=== PATIENT | female | born 1940 | race Caucasian/White ===

== ENCOUNTER → 2018-06-03 | Outpatient (CLI) | payer MEDICARE, OTHER | LOC: CARD 10:41 | PROVIDERS: ATTEND Internal Medicine Cardiovascular Disease | DX: E78.2 Mixed hyperlipidemia (principal); I10 Essential (primary) hypertension; R00.1 Bradycardia, unspecified; E66.9 Obesity, unspecified; I08.1 Rheumatic disorders of both mitral and tricuspid valves | CPT/HCPCS: 93306 ==

== ENCOUNTER → 2018-06-14 | Outpatient (CLI) | payer MEDICARE, OTHER ==
[~2018-06-14] VITALS: Ht 160 cm; Wt 94.8 kg
[~2018-06-14] MED LIST: CATHETER FLUSH 10 ML SYR IV PRN; REGADENOSON 0.4 MG/5 ML SYR (LEXISCAN) IV ONE
[2018-06-14 09:25] VITALS: BP 150/71
--- NOTE | 2018-06-15 09:01 | STRESS TEST ---
DATE OF SERVICE: 06/14/2018 LEXISCAN MYOVIEW STRESS TEST REFERRING PHYSICIAN: Dr. Britney Will. Baseline heart rate is 48, baseline blood pressure 155/72. Baseline EKG is sinus rhythm with no ischemic changes. SUMMARY: The patient was injected with 10.73 mCi of technetium-99 Myoview and the resting images were obtained. Then, the patient received 0.4 mg of Lexiscan followed by 28.3 mCi of technetium-99 Myoview. Throughout the test, there were no EKG changes. The resting and stress images were reviewed and compared in the short axis, horizontal long axis, and vertical long axis views. Review of the images showed good radiotracer uptake with breast attenuation, typical female pattern with no significant ischemia or infarction. SSS is 4, SDS 2, TID value 1.07. On the gated images, the left ventricle appeared to be in normal size with normal contractility. Calculated ejection fraction 55%. CONCLUSION: 1. The patient tolerated Lexiscan well. 2. Breast attenuation with typical female pattern with no significant ischemia or infarction on SPECT images. 3. Normal left ventricular size with normal contractility. Calculated ejection fraction 55%. Job ID: [id number] DocumentID: [id number] Dictated Date: 06/15/2018 08:06:11 Mattress Packer Date: 06/15/2018 09:01:14 Dictated By: SHERLYN AYALA MD
== END ==
LOC: CARD 07:28
PROVIDERS: ATTEND Internal Medicine Cardiovascular Disease
DX: E78.2 Mixed hyperlipidemia (principal); I10 Essential (primary) hypertension; R00.1 Bradycardia, unspecified; E66.9 Obesity, unspecified; Z68.37 Body mass index [BMI] 37.0-37.9, adult
CPT/HCPCS: 78452; 93017

== ENCOUNTER 2018-07-16 13:45 | Inpatient (IN) | payer MEDICARE, OTHER | END 2018-07-22 13:16 | disposition home or self-care (01) | LOC: ICU 07-18 07:18 → 4TH 07-20 11:29 | DX: I30.9 Acute pericarditis, unspecified (principal); R74.8 Abnormal levels of other serum enzymes; I12.0 Hypertensive chronic kidney disease with stage 5 chronic kidney disease or end stage renal disease; N18.3 Chronic kidney disease, stage 3 (moderate); I48.0 Paroxysmal atrial fibrillation; I27.20 Pulmonary hypertension, unspecified; G47.30 Sleep apnea, unspecified; R00.1 Bradycardia, unspecified; T44.7X5A Adverse effect of beta-adrenoreceptor antagonists, initial encounter; K21.9 Gastro-esophageal reflux disease without esophagitis; J30.2 Other seasonal allergic rhinitis; K58.1 Irritable bowel syndrome with constipation; M19.91 Primary osteoarthritis, unspecified site; M54.9 Dorsalgia, unspecified; M10.9 Gout, unspecified; H40.9 Unspecified glaucoma; E66.9 Obesity, unspecified; Z91.19 Patient's noncompliance with other medical treatment and regimen; Z68.36 Body mass index [BMI] 36.0-36.9, adult ==

== ENCOUNTER 2018-07-30 17:20 | Emergency (ER) | payer MEDICARE, OTHER ==
[~2018-07-30] VITALS: Ht 162.6 cm; Wt 93.4 kg
[~2018-07-30 17:20] MED LIST changes: +ACET-2267 PO; +AMIO200T4 PO; +AMLO5TAB9 PO; +APIX5TAB PO; +BIOT50002 SL; +BISO1TAB6 PO; -CATHETER FLUSH 10 ML SYR IV PRN; +DILT30TA PO; +ERGO50006 PO; +GABA-488 PO; +LACT1CAP74 PO; +LEVO50TA6 PO; +LOSA100T57 PO; +OMEP20TA33 PO; +POLY1DRO OU; -REGADENOSON 0.4 MG/5 ML SYR (LEXISCAN) IV ONE; +SIMV20TA3 PO; +TRAV5DRO OU
[2018-07-30 17:42] LABS: BASOPHILS % (AUTO) 0 % (0-10); EOSINOPHILS % (AUTO) 0 % (0-10); HEMATOCRIT 28 % (35-52); HEMOGLOBIN 8.9 G/DL (11.5-16.0); LYMPHOCYTES # (AUTO) 1.3 X 10^3 (1.0-4.0); LYMPHOCYTES % (AUTO) 15 % (12-44); MEAN CORPUSCULAR HEMOGLOBIN 30 PG (25-34); MEAN CORPUSCULAR HGB CONC 32 G/DL (32-36); MEAN CORPUSCULAR VOLUME 94 FL (80-99); MONOCYTES % (AUTO) 12 % (0-12); NEUTROPHILS # (AUTO) 6.1 X 10^3 (1.8-7.8); NEUTROPHILS % (AUTO) 72 % (42-75); PLATELET COUNT 302 10^3/uL (130-400); WHITE BLOOD COUNT 8.4 10^3/uL (4.3-11.0)
[2018-07-30] MEDS ORDERED: ASPIRIN 81 MG CHEW (CHILDREN'S ASA) PO ONE (17:45)
--- NOTE | 2018-07-30 18:06 | Diagnostic Imaging Report ---
INDICATION: Shortness of breath. COMPARISON: Prior examination from 07/20/2018. EXAMINATION: Two views of the chest were obtained. FINDINGS: There is some left basilar atelectasis and/or pneumonitis and a small left pleural effusion. There is cardiomegaly. Mediastinum is unremarkable. There is no pneumothorax. Spinal stimulator overlies the midthoracic spine. IMPRESSION: 1. Left basilar atelectasis and/or pneumonitis and a tiny left pleural effusion. 2. Cardiomegaly. Dictated by: Dictated on workstation # [id number]
[2018-07-30 18:08] LABS: ALANINE AMINOTRANSFERASE 28 U/L (0-55); ALKALINE PHOSPHATASE 87 U/L (40-136); BILIRUBIN,TOTAL 0.5 MG/DL (0.1-1.0); BUN/CREATININE RATIO 18; CALCIUM 8.9 MG/DL (8.5-10.1); CARBON DIOXIDE 23 MMOL/L (21-32); CHLORIDE 104 MMOL/L (98-107); CREATININE SERUM 1.73 MG/DL (0.60-1.30); GFR ESTIMATED 28; GLUCOSE 135 MG/DL (70-105); POTASSIUM 4.4 MMOL/L (3.6-5.0); SODIUM 135 MMOL/L (135-145); TOTAL PROTEIN 6.9 GM/DL (6.4-8.2)
[2018-07-30 18:13] LABS: INR 1.9 (0.8-1.4); PROTHROMBIN TIME PATIENT 22.6 SEC (12.2-14.7)
[2018-07-30 18:29] LABS: FREE T4 (FREE THYROXINE) 1.32 NG/DL (0.70-1.48)
--- NOTE | 2018-07-30 18:42 | ED Chest Pain ---
General Chief Complaint: Respiratory Problems Stated Complaint: SOB/O2 READING LOW 80'S Nursing Triage Note: Pt to ED with c/o sob, and pain under L breast. Pt reports O2 sats at home were in the low 80's. Pt also reports chest pain that has persisted since being discharged from the hospital one week ago. Nursing Sepsis Screen: No Definite Risk Source: patient, old records Exam Limitations: no limitations History of Present Illness Date Seen by Provider: July 30, 2018 Time Seen by Provider: 17:24 Initial Comments This 77-year-old woman presents to the emergency room with complaints of persistent chest discomfort and increased shortness of breath since being discha rged from the hospital earlier this month. She was admitted on July 16 for chest discomfort and possible pericarditis. She had elevated inflammatory markers and a positive AGUSTÍN test. She had suspected pericardial effusion as well. Today she reported having an oxygen saturation of 82 to 96 percent at home. However, she is satting in the mid 90s in the ER. Her low readings at home may be because of thick nail coverings and nail turkmen. Symptoms of chest discomfort and shortness of breath never really ceased after her admission but today they are a little worse. A little worse with inspiration. Dyspnea is worse with exertion. She was on colchicine and prednisone while in the hospital but did not continue these at home. Patient also had atrial fibrillation during her admission. She is anticoagulated. She believes she may have had some tachycardia this morning that has since resolved. Allergies and Home Medications Allergies Coded Allergies: levofloxacin (Unverified Allergy, Unknown, 06/14/18) propoxyphene (Unverified Allergy, Unknown, 06/14/18) Home Medications Acetaminophen 500 Mg Tablet, 500-1,000 MG PO Q4H PRN for PAIN-MILD, (Reported) Amiodarone HCl 200 Mg Tablet, 200 MG PO BID Prescribed by: KEIKO REYES on 07/22/18945 Apixaban 5 Mg Tablet, 5 MG PO BID Prescribed by: KEIKO REYES on 07/22/18945 Azithromycin 250 Mg Tablet, 250 MG PO DAILY Prescribed by: JAYRO RAMIREZ on 07/30/181915 Biotin 5,000 Mcg Tab.subl, 5,000 MCG SL DAILY, (Reported) Diltiazem HCl 30 Mg Tablet, 30 MG PO BID Prescribed by: KEIKO REYES on 07/22/18 0946 Ergocalciferol (Vitamin D2) 50,000 Unit Capsule, 50,000 UNITS PO We, (Reported) Gabapentin 300 Mg Capsule, 300 MG PO BID, (Reported) Gabapentin 300 Mg Capsule, 300 MG PO 1200 PRN for NEUROPATHY PAIN, (Reported) Lactobacillus Combination No.4 1 Each Capsule, 1 CAP PO DAILY, (Reported) Levothyroxine Sodium 50 Mcg Tablet, 50 MCG PO DAILY, (Reported) Losartan Potassium 100 Mg Tablet, 100 MG PO DAILY, (Reported) Omeprazole Magnesium 20 Mg Tablet.dr, 20 MG PO 1000, (Reported) Polyvinyl Alcohol/Povidone/Pf 1 Each Droperette, 1 DROP OU QID PRN for DRY EYES, (Reported) Simvastatin 20 Mg Tablet, 20 MG PO HS, (Reported) Travoprost 5 Ml Drops, 1 DROP OU HS, (Reported) Patient Home Medication List Home Medication List Reviewed: Yes Review of Systems Review of Systems Constitutional: no symptoms reported EENTM: No Symptoms Reported Respiratory: See HPI Cardiovascular: See HPI Gastrointestinal: No Symptoms Reported Genitourinary: No Symptoms Reported Musculoskeletal: no symptoms reported Skin: no symptoms reported Psychiatric/Neurological: No Symptoms Reported Endocrine: No Symptoms Reported Hematologic/Lymphatic: See HPI Past Iccfoil-Ckqdoy-Wqchup Hx Past Med/Social Hx: Reviewed and Corrections made Patient Social History Alcohol Use: Denies Use Recreational Drug Use: No Smoking Status: Former Smoker Type Used: Cigarettes 2nd Hand Smoke Exposure: No Recent Foreign Travel: No Contact w/Someone Who Travel: No Recent Infectious Disease Expo: No Recent Hopitalizations: No Seasonal Allergies Seasonal Allergies: Yes Past Medical History Surgeries: Yes (NECK SX, HEART CATH) Respiratory: No Sleep Apnea Currently Using CPAP: Yes (NONCOMPLIANT) Currently Using BIPAP: No Cardiac: Yes Atrial Fibrillation, Pericarditis Neurological: No : No Genitourinary: Yes Bladder Infection Gastrointestinal: Yes Gastroesophageal Reflux, Chronic Constipation, Irritable Bowel Musculoskeletal: Yes Arthritis, Chronic Back Pain, Fractures, Gout Endocrine: Yes (positive ANAs screen) HEENT: Yes Cataract, Glaucoma Cancer: No Psychosocial: No Integumentary: No Blood Disorders: Yes (positive AGUSTÍN screen) Physical Exam Vital Signs Vital Signs - First Documented 07/30/18 17:30 Temp 98.2 Pulse 86 Resp 20 B/P (MAP) 122/62 (82) Pulse Ox 94 O2 Delivery Room Air Capillary Refill : Less Than 3 Seconds Height, Weight, BMI Height: 5'4.00" Weight: 206lbs. 0.0oz. 93.943746uy; 37.0 BMI Method:Stated General Appearance: No Apparent Distress, WD/WN HEENT: PERRL/EOMI, Normal ENT Inspection Neck: Normal Inspection Respiratory: Lungs Clear, Normal Breath Sounds, No Accessory Muscle Use, No Respiratory Distress Cardiovascular: Regular Rate, Rhythm, No Edema, No Murmur Gastrointestinal: Normal Bowel Sounds, Non Tender, Soft Extremity: Normal Capillary Refill, Normal Inspection, Non Tender, No Calf Tenderness, No Pedal Edema Neurologic/Psychiatric: Alert, Oriented x3, No Motor/Sensory Deficits, bench manager II- XII Norm as Tested, Other (mildly anxious) Progress/Results/Core Measures Results/Orders Lab Results Laboratory Tests Test 07/30/18 17:30 Range/Units White Blood Count 8.4 4.3-11.0 10^3/uL Red Blood Count 2.93 L 4.35-5.85 10^6/uL Hemoglobin 8.9 L 11.5-16.0 G/DL Hematocrit 28 L 35-52 % Mean Corpuscular Volume 94 80-99 FL Mean Corpuscular Hemoglobin 30 25-34 PG Mean Corpuscular Hemoglobin Concent 32 32-36 G/DL Red Cell Distribution Width 14.0 10.0-14.5 % Platelet Count 302 130-400 10^3/uL Mean Platelet Volume 11.0 H 7.4-10.4 FL Neutrophils (%) (Auto) 72 42-75 % Lymphocytes (%) (Auto) 15 12-44 % Monocytes (%) (Auto) 12 0-12 % Eosinophils (%) (Auto) 0 0-10 % Basophils (%) (Auto) 0 0-10 % Neutrophils # (Auto) 6.1 1.8-7.8 X 10^3 Lymphocytes # (Auto) 1.3 1.0-4.0 X 10^3 Monocytes # (Auto) 1.0 0.0-1.0 X 10^3 Eosinophils # (Auto) 0.0 0.0-0.3 10^3/uL Basophils # (Auto) 0.0 0.0-0.1 10^3/uL Erythrocyte Sedimentation Rate 61 H 0-30 MM/HR Prothrombin Time 22.6 H 12.2-14.7 SEC INR Comment 1.9 H 0.8-1.4 Activated Partial Thromboplast Time 52 H 24-35 SEC Sodium Level 135 135-145 MMOL/L Potassium Level 4.4 3.6-5.0 MMOL/L Chloride Level 104 98-107 MMOL/L Carbon Dioxide Level 23 21-32 MMOL/L Anion Gap 8 5-14 MMOL/L Blood Urea Nitrogen 32 H 7-18 MG/DL Creatinine 1.73 H 0.60-1.30 MG/DL Estimat Glomerular Filtration Rate 28 BUN/Creatinine Ratio 18 Glucose Level 135 H 70-105 MG/DL Calcium Level 8.9 8.5-10.1 MG/DL Corrected Calcium 8.9 8.5-10.1 MG/DL Magnesium Level 2.0 1.8-2.4 MG/DL Total Bilirubin 0.5 0.1-1.0 MG/DL Aspartate Amino Transf (AST/SGOT) 39 H 5-34 U/L Alanine Aminotransferase (ALT/SGPT) 28 0-55 U/L Alkaline Phosphatase 87 40-136 U/L Myoglobin 75.9 10.0-92.0 NG/ML Troponin I < 0.028 <0.028 NG/ML C-Reactive Protein High Sensitivity 5.25 H 0.00-0.50 MG/DL B-Type Natriuretic Peptide 85.5 <100.0 PG/ML Total Protein 6.9 6.4-8.2 GM/DL Albumin 4.0 3.2-4.5 GM/DL Thyroid Stimulating Hormone (TSH) 1.58 0.35-4.94 UIU/ML Free Thyroxine 1.32 0.70-1.48 NG/DL My Orders Orders - JAYRO ANGEL MD Chest Pa/Lat (2 View) (07/30/18 17:31) Cbc With Automated Diff (07/30/18 17:31) Magnesium (07/30/18 17:31) Ekg Tracing (07/30/18 17:31) Cardiac Profile 1 (07/30/18 17:31) Comprehensive Metabolic Panel (07/30/18 17:31) Myoglobin Serum (07/30/18 17:31) Protime With Inr (07/30/18 17:31) Partial Thromboplastin Time (07/30/18 17:31) O2 (07/30/18 17:31) Monitor-Rhythm Ecg Trace Only (07/30/18 17:31) Ed Iv/Invasive Line Start (07/30/18 17:31) Aspirin Chewable Tablet (Baby Aspirin Ch (07/30/18 17:45) BNP (07/30/18 17:31) Hs C Reactive Protein (07/30/18 17:31) Erythrocyte Sedimentation Rate (07/30/18 17:31) Thyroid Stimulating Hormone (07/30/18 17:31) Free T4 (Free Thyroxine) (07/30/18 17:31) Ns Iv 1000 Ml (Sodium Chloride 0.9%) (07/30/18 18:47) Azithromycin Tablet (Zithromax Tablet) (07/30/18 19:15) Medications Given in ED Vital Signs/I&O 07/30/18 07/30/18 17:30 20:03 Temp 98.2 98.2 Pulse 86 61 Resp 20 20 B/P (MAP) 122/62 (82) 134/78 (96) Pulse Ox 94 100 O2 Delivery Room Air Room Air 07/31/18 00:00 Intake Total 1000 ml Balance 1000 ml Blood Pressure Mean: 82 Progress Progress Note : Time: 19:13 Progress Note Case was discussed with Dr. Ogden. We both feel pericarditis is not likely an active condition at this time. EKG shows no ST elevation. Patient may have some type of autoimmune process causing the positive ANAs screen and elevated inflammatory markers. Inflammatory markers are trending down from prior values. Chest x-ray demonstrated a possible lower lung infiltrate. We will treat for p neumonia with azithromycin. The first dose was given in the ER. Patient is to follow-up with Dr. Flores. She has an appointment for late August. I'll advise her to see her primary care provider this next week as well. Patient was noted to have a bump in her creatinine from prior. A liter of IV fluid was infused prior to departure. Inflammatory markers (CRP and ESR) are elevated today but are trending down from her prior. Initial ECG Impression Date: July 30, 2018 Initial ECG Impression Time: 17:27 Initial ECG Rate: 71 Initial ECG Rhythm: Normal Sinus Comment Normal sinus rhythm with low voltage. Left axis deviation by automated read. No ST elevation or depression. No significant interval abnormalities. Diagnostic Imaging Diagonstic Imaging: Xray Plain Films/CT/US/NM/MRI: chest Comments Chest x-ray viewed by me and report reviewed. See report below: NAME: INDER HERNANDEZ [facility] REC#: [id number] PT STATUS: REG ER : 1940 PHYSICIAN: JAYRO ANGEL MD ADMIT DATE: 07/30/18/ER Signed Date of Exam:07/30/18 CHEST PA/LAT (2 VIEW) INDICATION: Shortness of breath. COMPARISON: Prior examination from 07/20/2018. EXAMINATION: Two views of the chest were obtained. FINDINGS: There is some left basilar atelectasis and/or pneumonitis and a small left pleural effusion. There is cardiomegaly. Mediastinum is unremarkable. There is no pneumothorax. Spinal stimulator overlies the midthoracic spine. IMPRESSION: 1. Left basilar atelectasis and/or pneumonitis and a tiny left pleural effusion. 2. Cardiomegaly. Dictated by: Dictated on workstation # [id number] Dict: 07/30/18 1800 Trans: 07/30/18 1811 [facility] [id number] Interpreted by: ANA LUISA BRAN MD Electronically signed by: ANA LUISA BRAN MD 07/30/181810 Departure Impression Primary Impression: Shortness of breath Additional Impressions: Pulmonary infiltrate Acute kidney injury Disposition: 01 HOME, SELF-CARE Condition: Improved Departure-Patient Inst. Decision time for Depature: 19:15 Referrals: NICOLAS MORENO MD (PCP/Family) Primary Care Physician Patient Instructions: Pneumonia, Adult (DC) Add. Discharge Instructions: Keep your follow-up appointment with Dr. Flores. Follow-up with Dr. MORENO soon as possible. Call her office Thursday morning for an appointment. I would like for you to be seen in her office next week. Complete your antibiotic as prescribed. Drink plenty of clear liquids. Return to care if you have worsening symptoms. All discharge instructions reviewed with patient and/or family. Voiced understanding. Scripts Azithromycin (Azithromycin) 250 Mg Tablet 250 MG PO DAILY, #4 TAB 0 Refills Prov: JAYRO ANGEL MD 07/30/18 Copy Copies To 1: NICOLAS MORENO MD Copies To 2: Rossi FLORES MD, JOSHUA T MD July 30, 2018 18:42
[2018-07-30] MEDS ORDERED: NS IV 1000 ML 1,000 ML IV ONE (18:47)
--- NOTE | 2018-07-30 19:02 | NUR ---
report given to nikhil
[2018-07-30] MEDS ORDERED: AZITHROMYCIN 250 MG TAB (ZITHROMAX) PO ONE (19:15)
[2018-07-30] MEDS ORDERED: AZIT250T12 PO (19:16)
[2018-07-30 20:03] VITALS: BP 134/78
== END 2018-07-30 20:05 | disposition home or self-care (01) ==
LOC: EDUNIT# 17:20 → ER 17:21
DX: R06.02 Shortness of breath (principal); R91.8 Other nonspecific abnormal finding of lung field; N17.9 Acute kidney failure, unspecified; I48.91 Unspecified atrial fibrillation; G47.30 Sleep apnea, unspecified; K58.9 Irritable bowel syndrome, unspecified; M10.9 Gout, unspecified; K21.9 Gastro-esophageal reflux disease without esophagitis; Z95.9 Presence of cardiac and vascular implant and graft, unspecified; Z87.19 Personal history of other diseases of the digestive system; Z87.448 Personal history of other diseases of urinary system; Z86.79 Personal history of other diseases of the circulatory system; Z91.19 Patient's noncompliance with other medical treatment and regimen; Z79.01 Long term (current) use of anticoagulants; Z87.891 Personal history of nicotine dependence; Z99.81 Dependence on supplemental oxygen; Z88.8 Allergy status to other drugs, medicaments and biological substances
CPT/HCPCS: 36415; 71046; 80053; 83735; 83874; 83880; 84439; 84443; 84484; 85025; 85610; 85652; 85730; 86141; 93005; 93041

== ENCOUNTER 2018-10-06 20:29 | Outpatient (CLI) | payer MEDICARE, OTHER ==
[~2018-10-06 20:29] MED LIST changes: +AZIT250T12 PO
== END 2018-10-07 06:45 | disposition home or self-care (01) ==
LOC: SLEEP 20:29
PROVIDERS: ATTEND Nurse Practitioner Family
DX: G47.33 Obstructive sleep apnea (adult) (pediatric) (principal); G47.10 Hypersomnia, unspecified; J30.9 Allergic rhinitis, unspecified; R09.02 Hypoxemia
CPT/HCPCS: 95810